=== PATIENT | male | born 1960 | race Caucasian/White ===

== ENCOUNTER 2019-06-10 16:12 | Emergency (ER) | payer SELFPAY ==
[~2019-06-10] VITALS: Ht 180.3 cm; Wt 86.2 kg
[2019-06-10] MEDS ORDERED: IBUPROFEN 400 MG TABLET PO ONE (16:30)
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
[2019-06-10] MEDS ORDERED: IBUPROFEN 400 MG TABLET ONE (16:40)
[2019-06-10] MEDS ORDERED: IBUPROFEN 200 MG TABLET ONE (16:43)
[2019-06-10] MEDS ORDERED: IBUPROFEN 600 MG TABLET PO ONE (16:45)
[2019-06-10 18:35] VITALS: BP 124/78
--- NOTE | 2019-06-10 18:36 | NUR ---
PT DISCHARGED TO HOME GIVEN PRESCRIPTION AND [facility] WILL FOLLOW UP WITH RECOMMENDATION MD IN [facility]
== END 2019-06-10 18:37 | disposition home or self-care (01) ==
LOC: ER 16:14
DX: R68.84 Jaw pain (principal)
CPT/HCPCS: 70328-TC